=== PATIENT | male | born 1965 | race Caucasian/White ===

== ENCOUNTER 2023-03-31 11:22 | Observation (INO) | payer BC ==
[2023-03-31] MEDS ORDERED: Cardizem IV 50 MG/10 ML IV ONE ×2 (11:59→12:09)
--- NOTE | 2023-03-31 12:02 | ERPHSYRPT ---
- History of Present Illness Time Seen by Provider: 03/31/23 11:35 Source: patient Exam Limitations: no limitations Patient Subjective Stated Complaint: short of breath Triage Nursing Assessment: Pt brought to the ER by self, tachycardic, afib with RVR, denies pain, states that he did wake up with pain between his shoulder blades, dry unproductive cough, has been short of breath for a couple of weeks and has been taking primatene mist, states that he felt more short of breath this morning, pulses bounding, skin n/w/d, doesn't appear to be in any distress Physician History: Patient is a 57-year-old male with a history of A-fib with RVR presents to our ED for evaluation of shortness of breath and pain to his shoulders. Patient believes that he has A-fib with RVR as he had same symptoms during his last episode of A-fib with RVR. Patient followed up with his primary care doctor this morning. Primary care doctor sent patient to our ED for further evaluation and treatment. His primary care doctor also requested a CTA chest to rule out PE which has been ordered. Patient otherwise feels well. No nausea vomiting or diaphoresis. No active chest pain at this time. Vague chest pressure. Patient voices no other complaints or concerns at this time. Portions of this note were created with voice recognition technology. There may be grammatical, spelling, punctuation or sound alike errors Timing/Duration: today Severity: moderate Modifying Factors: Improves With: nothing Associated Symptoms: denies symptoms Allergies/Adverse Reactions: No Known Drug Allergies Allergy (Verified 03/31/23 11:45) Home Medications: Tadalafil [Cialis] 20 mg PO UD 03/31/23 [History] Hx Influenza Vaccination/Date Given: No Hx Pneumococcal Vaccination/Date Given: No Travel Risk - International Travel Have you traveled outside of the country in past 3 weeks: No - Coronavirus Screening Are you exhibiting any of the following symptoms?: No Close contact with a COVID-19 positive Pt in past 14-21 Days: No - Vaccine Status Have you recieved a Covid-19 vaccination: Yes 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 - Vaccination Dates Date of 2cond Vaccination (if applicable): 2020 - Review of Systems Constitutional: No Symptoms, No Fever, No Chills Eyes: No Symptoms Ears, Nose, & Throat: No Symptoms Respiratory: No Symptoms, No Cough, No Dyspnea Cardiac: No Symptoms, No Chest Pain, No Edema, No Syncope Abdominal/Gastrointestinal: No Symptoms, No Abdominal Pain, No Nausea, No Vomiting, No Diarrhea Genitourinary Symptoms: No Symptoms, No Dysuria Musculoskeletal: No Symptoms, No Back Pain, No Neck Pain Skin: No Symptoms, No Rash Neurological: No Symptoms, No Dizziness, No Focal Weakness, No Sensory Changes Psychological: No Symptoms Endocrine: No Symptoms Hematologic/Lymphatic: No Symptoms Immunological/Allergic: No Symptoms All Other Systems: Reviewed and Negative - Past Medical History Pertinent Past Medical History: Yes Cardiac History: Arrhythmia, High Cholesterol, Hypertension GI Medical History: Hemorrhoids - Past Surgical History Past Surgical History: No - Social History Smoking Status: Never smoker Exposure to second hand smoke: Yes Drug Use: none Patient Lives Alone: No - Nursing Vital Signs Nursing Vital Signs: Initial Vital Signs Temperature 97.5 F 03/31/23 11:29 Pulse Rate 165 H 03/31/23 11:29 Respiratory Rate 25 H 03/31/23 11:29 Blood Pressure 137/99 03/31/23 11:29 O2 Sat by Pulse Oximetry 94 L 03/31/23 11:29 Pain Scale Pain Intensity 0 - Physical Exam General Appearance: no apparent distress, alert Eye Exam: PERRL/EOMI, eyes nml inspection Ears, Nose, Throat Exam: normal ENT inspection, TMs normal, pharynx normal, moist mucous membranes Neck Exam: normal inspection, non-tender, supple, full range of motion Respiratory Exam: normal breath sounds, lungs clear, airway intact, No respiratory distress Cardiovascular Exam: regular rate/rhythm, normal heart sounds, normal peripheral pulses Gastrointestinal/Abdomen Exam: soft, normal bowel sounds, No tenderness, No mass Back Exam: normal inspection, normal range of motion, No CVA tenderness, No vertebral tenderness Extremity Exam: normal inspection, normal range of motion, pelvis stable Neurologic Exam: alert, oriented x 3, cooperative, normal mood/affect, nml cerebellar function, nml station & gait, sensation nml, No motor deficits Skin Exam: normal color, warm, dry, No rash Lymphatic Exam: No adenopathy SpO2: 94 - Course Nursing assessment & vital signs reviewed: Yes EKG Interpreted by Me: RATE ([id number]), A-fib, NORMAL AXIS, NORMAL INTERVALS Ordered Tests: Active Orders 24 hr Category Date Time Status CHEST WITH CONTRAST [CT] Stat Exams 03/31/23 12:01 Ordered CBC W DIFF Stat Lab 03/31/23 12:10 Completed CMP Stat Lab 03/31/23 12:10 Completed NT PRO BNPII Stat Lab 03/31/23 12:10 Completed TROPONIN Q4H Lab 03/31/23 12:10 Completed TROPONIN Q4H Lab 03/31/23 16:15 Ordered TROPONIN Q4H Lab 03/31/23 20:15 Ordered Urine Triage Profile Stat Lab 03/31/23 12:01 Ordered Transfer Order Routine Transfer 03/31/23 Ordered Medication Summary Generic Name Dose Route Start Last Admin Trade Name Freq PRN Reason Stop Dose Admin Diltiazem HCl 100 mls @ 10 mls/hr 03/31/23 12:40 Cardizem Drip 100 Mg/100 Ml D5w IV 04/30/23 12:39 .Q10H PRN HEART RATE/ A-FIB Protocol 10 MG/HR Discontinued Medications Generic Name Dose Route Start Last Admin Trade Name Freq PRN Reason Stop Dose Admin Diltiazem HCl 15 mg 03/31/23 11:59 03/31/23 12:10 Diltiazem Hcl Iv 5 Mg/Ml Vial IV 03/31/23 12:00 15 mg STAT ONE Administration Diltiazem HCl Confirm 03/31/23 12:09 Diltiazem Hcl Iv 5 Mg/Ml Vial Administered 03/31/23 12:10 Dose 50 mg IV .STK-MED ONE Enoxaparin Sodium 100 mg 03/31/23 12:12 Enoxaparin Sodium 120 Mg/0.8 Ml Syringe SQ 03/31/23 12:13 STAT STA Lab/Rad Data: Laboratory Result Diagrams 03/31/23 12:10 03/31/23 12:10 Laboratory Results 03/31/23 03/31/23 03/31/23 Range/Units 12:10 12:10 12:10 WBC 10.4 (4.0-10.5) x10^3/uL RBC 5.36 (4.1-5.6) x10^6/uL Hgb 17.0 (12.5-18.0) g/dL Hct 51.8 H (42-50) % MCV 96.6 (78-100) fL MCH 31.7 (26-32) pg MCHC 32.8 (32-36) g/dL RDW 13.4 (11.5-14.0) % Plt Count 177 (150-450) x10^3/uL MPV 10.6 (7.5-11.0) fL Gran % 71.2 H (36.0-66.0) % Immature Gran % (Auto) 0.4 (0.00-0.4) % Nucleat RBC Rel Count 0.0 (0.00-0.1) % Eos # (Auto) 0.07 (0-0.5) x10^3/uL Immature Gran # (Auto) 0.04 H (0.00-0.03) x10^3u/L Absolute Lymphs (auto) 1.52 (1.0-4.6) x10^3/uL Absolute Monos (auto) 1.31 H (0.0-1.3) x10^3/uL Absolute Nucleated RBC 0.00 (0.00-0.01) x10^3u/L Lymphocytes % 14.6 L (24.0-44.0) % Monocytes % 12.6 H (0.0-12.0) % Eosinophils % 0.7 (0.00-5.0) % Basophils % 0.5 (0.0-0.4) % Absolute Granulocytes 7.44 H (1.4-6.9) x10^3/uL Basophils # 0.05 (0-0.4) x10^3/uL Sodium 138 (137-145) mmol/L Potassium 4.4 (3.5-5.1) mmol/L Chloride 102 (98-107) mmol/L Carbon Dioxide 27 (22-30) mmol/L Anion Gap 14.2 (5-15) MEQ/L BUN 14 (9-20) mg/dL Creatinine 1.09 (0.66-1.25) mg/dL Estimated GFR > 60.0 ML/MIN Glucose 97 (74-106) mg/dL Calcium 9.3 (8.4-10.2) mg/dL Total Bilirubin 1.30 (0.2-1.3) mg/dL AST 44 (17-59) U/L ALT 45 (0-50) U/L Alkaline Phosphatase 70 (38-126) U/L Troponin I < 0.012 (0.000-0.034) ng/mL NT-Pro-B Natriuret Pep 3130 (<300) pg/mL Serum Total Protein 7.5 (6.3-8.2) g/dL Albumin 4.6 (3.5-5.0) g/dL - Progress Progress: improved Progress Note: Patient is a 57-year-old male presents to our ED as a referral from his primary care doctor for evaluation of tachycardia. Patient's primary care doctor request CTA chest with contrast. Upon arrival to our ED patient observed to be in A-fib with RVR. Cardizem initiated. Weight-based Lovenox administered. Case discussed with Dr. diaz at 12:40 PM for admission. Portions of this note were created with voice recognition technology. There may be grammatical, spelling, punctuation or sound alike errors Complexity of problems addressed is moderate acute complicated Critical care time is 1 hour. Immediate intervention required to prevent further deterioration. Patient received Cardizem 2 decreased the ventricular response to the atrial fibrillation. Complex of data reviewed and analyzed is extensive. Test ordered test reviewed and analyzed. Clinical correlation made between the imaging and laboratory findings versus the history and physical examination. Management discussed with separate admission at 12:40 PM. Risk complication and or risk of morbidity/mortality of patient management is high. Patient will require hospitalization in the ICU for further evaluation and treatment. Portions of this note were created with voice recognition technology. There may be grammatical, spelling, punctuation or sound alike errors Time spent to admit patient approximately 20 minutes. Plan of care established for shared decision making. Patient voices no other complaints or concerns at this time. He agrees to admission [facility] for further evaluation and treatment. Portions of this note were created with voice recognition technology. There may be grammatical, spelling, punctuation or sound alike errors 03/31/23 13:05 Discussed with : Dawood Will see patient in: hospital (observation) Counseled pt/family regarding: lab results, diagnosis, rad results - Departure Departure Disposition: Observation Clinical Impression: Atrial fibrillation with RVR Condition: Stable Critical Care Time: No Referrals: WANDER CHAVARRIA MD [Primary Care Provider] - Follow up/PCP as directed
[2023-03-31] MEDS ORDERED: ENOXAPARIN SODIUM SQ STA (12:12)
[2023-03-31 12:19] LABS: Absolute Neutrophil Ct (ANC) 7.44 x10^3/uL (1.4-6.9); BASOPHIL % 0.5 % (0.0-0.4); Basophil (Absolute #) 0.05 x10^3/uL (0-0.4); Eosinophil % 0.7 % (0.00-5.0); Eosinophil (Absolute #) 0.07 x10^3/uL (0-0.5); Hematocrit 51.8 % (42-50); IMMATURE GRAN # 0.04 x10^3u/L (0.00-0.03); IMMATURE GRAN % 0.4 % (0.00-0.4); Lymphocyte (Absolute #) 1.52 x10^3/uL (1.0-4.6); Lymphocytes % 14.6 % (24.0-44.0); Mean Cell Volume 96.6 fL (78-100); Mean Corpuscular Hemoglobin 31.7 pg (26-32); Mean Corpuscular Hgb Concent. 32.8 g/dL (32-36); Mean Platelet Volume 10.6 fL (7.5-11.0); Monocyte (Absolute #) 1.31 x10^3/uL (0.0-1.3); Monocytes % 12.6 % (0.0-12.0); Neutrophil % 71.2 % (36.0-66.0); Platelet Count 177 x10^3/uL (150-450); Red Blood Count 5.36 x10^6/uL (4.1-5.6); Red Cell Distribution Width 13.4 % (11.5-14.0); White Blood Count 10.4 x10^3/uL (4.0-10.5)
[2023-03-31] MEDS ORDERED: CARDIZEM DRIP 100 MG/100 ML D5W 100 ML IV PRN (12:40)
[2023-03-31 12:44] LABS: ALBUMIN 4.6 g/dL (3.5-5.0); ALKALINE PHOSPHATASE 70 U/L (38-126); ANION GAP 14.2 MEQ/L (5-15); BLOOD UREA NITROGEN 14 mg/dL (9-20); CHLORIDE 102 mmol/L (98-107); Calcium 9.3 mg/dL (8.4-10.2); Carbon Dioxide 27 mmol/L (22-30); Creatinine 1 1.09 mg/dL (0.66-1.25); EST GLOMERULAR FILTRATION RATE > 60.0 ML/MIN; Glucose 97 mg/dL (74-106); NT PRO BNPII 3130 pg/mL (<300); Potassium 4.4 mmol/L (3.5-5.1); SGOT/AST 44 U/L (17-59); SGPT/ALT 45 U/L (0-50); SODIUM 138 mmol/L (137-145); Total Protein 7.5 g/dL (6.3-8.2)
[2023-03-31] MEDS ORDERED: ENOXAPARIN SODIUM SQ ONE (13:21)
--- NOTE | 2023-03-31 13:45 | XRAY ---
Indication: Short of breath. Pulmonary embolus. Multiple contiguous axial images obtained through the chest using 80 cc Isovue 370 contrast and PE protocol. Comparison: None Good opacification of the pulmonary arteries to include the lobar and segmental branches. No bony embolus. Heart not enlarged. Aorta is normal in course and caliber. No pathologic mediastinal/hilar lymphadenopathy. Lungs demonstrate mild bibasilar subsegmental atelectasis/scarring and tiny right effusion. No suspicious pulmonary mass/nodule, infiltrate, effusion, or pneumothorax. Bony thorax intact with minimal degenerative changes throughout the spine. Limited upper abdomen demonstrates fatty liver. Visualized gallbladder demonstrates mild pericholecystic stranding without obvious gallstones, possibly acalculous cholecystitis. Impression: 1. Negative pulmonary embolus. Tiny nonspecific right effusion. 2. Partially visualized pericholecystic stranding. Rule out acalculous cholecystitis. Sonogram may yield further information if clinically warranted. 3. Fatty liver.
--- NOTE | 2023-03-31 14:18 | PCM.HP ---
History of Present Illness - Chief Complaint Chief Complaint: A-fib with RVR Date: 03/31/23 History of Present Illness: is a 57 year old male with a pmhx of HTN and HLD presented to the ED on 03/31/23 with complaints of shortness of breath and pain in between his shoulder blades. Patient reports onset was approximately two days ago, he woke up feeling like "someone was covering my mouth" and had to spend the night in a chair sitting up while sleeping. 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 No associated N/V, fever, CP, H/A, or diaphoresis. Patient does state that he recently took cialis as well as primatene mist. In ER patient was tachycardic with HR of 165, afebrile, and normotensive. EKG showing AFIB, and old infarct. CTA - Negative pulmonary embolus. Tiny nonspecific right effusion. Partially visualized pericholecystic stranding with recommendations to rule out acalculous cholecystitis. Fatty liver. Patient started on lovenox as well as cardizem drip. PCP: Enrique Davenport - Review of Systems Constitutional: No Symptoms Eyes: No Symptoms Ears, Nose, & Throat: No Symptoms Respiratory: Cough, Short Of Breath Cardiac: Palpitations Abdominal/Gastrointestinal: No Symptoms Genitourinary Symptoms: No Symptoms Musculoskeletal: Back Pain Skin: No Symptoms Neurological: No Symptoms Psychological: No Symptoms Medications & Allergies Home Medications: Home Medication List EPINEPHrine [Primatene Mist] 2 puffs IH UD PRN 03/31/23 [History Confirmed 03/31/23] Tadalafil [Cialis] 20 mg PO UD 03/31/23 [History Confirmed 03/31/23] Allergies/Adverse Reactions: Allergies Allergy/AdvReac Type Severity Reaction Status Date / Time No Known Drug Allergies Allergy Verified 03/31/23 11:45 - Past Medical History Past Medical History: Yes Cardiac History: Arrhythmia, High Cholesterol, Hypertension GI Medical History: Hemorrhoids - Past Surgical History Past Surgical History: No - Social History Smoking Status: Never smoker Exposure to second hand smoke: Yes Alcohol: Daily Drug Use: none - Physical Exam Vital Signs: Vital Signs - 24 hr Temp Pulse Resp BP BP Pulse Ox 03/31/23 13:57 129 H 95 03/31/23 13:35 134 H 23 99/82 95 03/31/23 13:09 94 L 03/31/23 12:30 99/82 03/31/23 12:26 140 H 19 108/83 94 L 03/31/23 12:01 136 H 17 106/87 94 L 03/31/23 11:29 97.5 F 165 H 5 L 137/99 94 L General Appearance: no apparent distress Neurologic Exam: alert, oriented x 3, cooperative Eye Exam: PERRL/EOMI Neck Exam: normal inspection Respiratory Exam: normal breath sounds, lungs clear Cardiovascular Exam: irregular Gastrointestinal/Abdomen Exam: soft, normal bowel sounds Rectal Exam: deferred Back Exam: normal inspection Extremity Exam: normal inspection Skin Exam: normal color Results - Labs Lab/Micro Results: Lab Results-Last 24 Hours 03/31/23 03/31/23 03/31/23 Range/Units 12:10 12:10 12:10 WBC 10.4 (4.0-10.5) x10^3/uL RBC 5.36 (4.1-5.6) x10^6/uL Hgb 17.0 (12.5-18.0) g/dL Hct 51.8 H (42-50) % MCV 96.6 (78-100) fL MCH 31.7 (26-32) pg MCHC 32.8 (32-36) g/dL RDW 13.4 (11.5-14.0) % Plt Count 177 (150-450) x10^3/uL MPV 10.6 (7.5-11.0) fL Gran % 71.2 H (36.0-66.0) % Immature Gran % (Auto) 0.4 (0.00-0.4) % Nucleat RBC Rel Count 0.0 (0.00-0.1) % Eos # (Auto) 0.07 (0-0.5) x10^3/uL Immature Gran # (Auto) 0.04 H (0.00-0.03) x10^3u/L Absolute Lymphs (auto) 1.52 (1.0-4.6) x10^3/uL Absolute Monos (auto) 1.31 H (0.0-1.3) x10^3/uL Absolute Nucleated RBC 0.00 (0.00-0.01) x10^3u/L Lymphocytes % 14.6 L (24.0-44.0) % Monocytes % 12.6 H (0.0-12.0) % Eosinophils % 0.7 (0.00-5.0) % Basophils % 0.5 (0.0-0.4) % Absolute Granulocytes 7.44 H (1.4-6.9) x10^3/uL Basophils # 0.05 (0-0.4) x10^3/uL Sodium 138 (137-145) mmol/L Potassium 4.4 (3.5-5.1) mmol/L Chloride 102 (98-107) mmol/L Carbon Dioxide 27 (22-30) mmol/L Anion Gap 14.2 (5-15) MEQ/L BUN 14 (9-20) mg/dL Creatinine 1.09 (0.66-1.25) mg/dL Estimated GFR > 60.0 ML/MIN Glucose 97 (74-106) mg/dL Calcium 9.3 (8.4-10.2) mg/dL Total Bilirubin 1.30 (0.2-1.3) mg/dL AST 44 (17-59) U/L ALT 45 (0-50) U/L Alkaline Phosphatase 70 (38-126) U/L Troponin I < 0.012 (0.000-0.034) ng/mL NT-Pro-B Natriuret Pep 3130 (<300) pg/mL Serum Total Protein 7.5 (6.3-8.2) g/dL Albumin 4.6 (3.5-5.0) g/dL - Radiology Impressions Radiology Exams & Impressions: Radiology Procedures Category Date Time Status CHEST WITH CONTRAST [CT] Stat Exams 03/31/23 12:01 Completed Assessment/Plan (1) Atrial fibrillation with RVR Current Visit: Yes Status: Acute Assessment & Plan: Atrial Fibrillation- new onset -Monitor on Telemetry -Cardizem drip at 5mg/hr, titrate, consider metoprolol once rate controlled -rate control to target goal HR <85 bpm at rest if symptomatic, goal HR <110 bpm if asymptomatic -[id number]: 1 -Not currently on anticoagulation, lovenox for now -PT/INR supratherapeutic pending -optimize electrolytes for goal of K at 4 and magnesium at 2 -BMP, TSH, MG -ECHO stat Code(s): I48.91 - UNSPECIFIED ATRIAL FIBRILLATION (2) Hypertension Current Visit: Yes Status: Acute Assessment & Plan: -stable, will continue to monitor Code(s): I10 - ESSENTIAL (PRIMARY) HYPERTENSION (3) HLD (hyperlipidemia) Current Visit: Yes Status: Acute Assessment & Plan: -noted, does not take home meds, will check lipid panel Code(s): E78.5 - HYPERLIPIDEMIA, UNSPECIFIED (4) Abnormal CT of the chest Current Visit: Yes Status: Acute Assessment & Plan: -CTA showing Partially visualized pericholecystic stranding with recommendations to rule out acalculous cholecystitis. Will order abdominal US. VTE: lovenox Dispo: 1-2 days Code(s): R93.89 - ABNORMAL FINDINGS ON DX IMAGING OF OTH BODY STRUCTURES
[2023-03-31] MEDS ORDERED: Zofran 4 MG/2 ML VIAL IV PRN (14:59)
[2023-03-31] MEDS ORDERED: TYLENOL 325 MG PO PRN (14:59)
[2023-03-31] MEDS ORDERED: DUONEB 0.5-3 MG/3 ml Neb IH PRN (14:59)
[2023-03-31 15:14] LABS: Amphetamine,Urine NEGATIVE (NEGATIVE); Barbiturate,Urine NEGATIVE (NEGATIVE); Benzodiazepine,Urine NEGATIVE (NEGATIVE); Cocaine,Urine NEGATIVE (NEGATIVE); Methadone,Urine NEGATIVE (NEGATIVE); Opiate,Urine NEGATIVE (NEGATIVE); PCP,Urine NEGATIVE (NEGATIVE); THC,Urine POSITIVE (NEGATIVE)
[2023-03-31 15:22] LABS: INR 1.07 (0.8-3.0); PROTIME 11.6 SECONDS (9.4-12.5)
[2023-03-31] MEDS: Lopressor 50 MG PO SCH ×2 (15:23→21:10)
[2023-03-31 15:30] LABS: Appearance Clear (Clear); Bilirubin Negative (Negative); Blood Negative (Negative); Glucose, Urine Negative (Negative); Ketones Trace (Negative); Leukocyte Esterase Negative (Negative); Nitrite Negative (Negative); Ph 6.5 (4.6-8.0); Protein,Urine Dip Negative (Negative); Urobilinogen 0.2 mg/dL (0.2)
[2023-03-31 15:35] LABS: Bacteria None Seen /HPF (None Seen); Epithelial Cells None Seen /HPF (None Seen); Hyaline Casts NONE SEEN /LPF (0-2); RBC 0-2 /HPF (0-5); WBC 0-2 /HPF (0-5)
[2023-03-31 15:36] LABS: ADD URINE CULTURE? NO (NO)
[2023-03-31 15:55] LABS: MAGNESIUM 2.2 mg/dL (1.6-2.3); TSH, 3RD Generation 2.76 mIU/L (0.47-4.68)
[2023-03-31] MEDS: CARDIZEM DRIP 100 MG/100 ML D5W 100 ML IV PRN (18:07)
[2023-03-31] MEDS ORDERED: ENOXAPARIN SODIUM SQ SCH (22:00)
[2023-04-01 04:55] LABS: Absolute Neutrophil Ct (ANC) 5.55 x10^3/uL (1.4-6.9); BASOPHIL % 0.4 % (0.0-0.4); Basophil (Absolute #) 0.03 x10^3/uL (0-0.4); Eosinophil % 1.3 % (0.00-5.0); Eosinophil (Absolute #) 0.11 x10^3/uL (0-0.5); Hematocrit 47.9 % (42-50); Hemoglobin 15.8 g/dL (12.5-18.0); IMMATURE GRAN # 0.03 x10^3u/L (0.00-0.03); IMMATURE GRAN % 0.4 % (0.00-0.4); Lymphocyte (Absolute #) 1.59 x10^3/uL (1.0-4.6); Lymphocytes % 19.1 % (24.0-44.0); Mean Cell Volume 96.6 fL (78-100); Mean Corpuscular Hemoglobin 31.9 pg (26-32); Mean Platelet Volume 10.6 fL (7.5-11.0); Monocyte (Absolute #) 1.01 x10^3/uL (0.0-1.3); Monocytes % 12.1 % (0.0-12.0); Neutrophil % 66.7 % (36.0-66.0); Platelet Count 154 x10^3/uL (150-450); Red Blood Count 4.96 x10^6/uL (4.1-5.6); Red Cell Distribution Width 13.7 % (11.5-14.0); White Blood Count 8.3 x10^3/uL (4.0-10.5)
[2023-04-01 05:08] LABS: ALKALINE PHOSPHATASE 50 U/L (38-126); ANION GAP 10.9 MEQ/L (5-15); BLOOD UREA NITROGEN 18 mg/dL (9-20); CHLORIDE 104 mmol/L (98-107); Calcium 8.7 mg/dL (8.4-10.2); Carbon Dioxide 24 mmol/L (22-30); Creatinine 1 0.99 mg/dL (0.66-1.25); EST GLOMERULAR FILTRATION RATE > 60.0 ML/MIN; Glucose 86 mg/dL (74-106); SGOT/AST 34 U/L (17-59); SGPT/ALT 37 U/L (0-50); SODIUM 135 mmol/L (137-145); Total Protein 6.6 g/dL (6.3-8.2)
[2023-04-01 05:25] LABS: Risk Ratio 4.1
[2023-04-01] MEDS: CARDIZEM DRIP 100 MG/100 ML D5W 100 ML IV PRN ×2 (05:53→10:40)
[2023-04-01] MEDS: Lopressor 50 MG PO SCH ×2 (07:20→20:40)
[2023-04-01] MEDS ORDERED: ENOXAPARIN SODIUM SQ SCH (10:00)
--- NOTE | 2023-04-01 11:25 | XRAY ---
Indication: Right upper quadrant pain. Abnormal gallbladder on recent CT chest. Two-dimensional limited right upper quadrant abdominal sonogram performed. Comparison: None Pancreas not well-seen due to overlying bowel gas. Visualized liver homogeneous in echogenicity. Gallbladder normally distended with marked gallbladder wall thickening up to 1.2 cm. No gallstones or pericholecystic fluid. Common bile duct measures 5 mm. No intrahepatic biliary distention. Right kidney measures 12 cm in length and sonographically unremarkable. Impression: 1. Nonvisualization pancreas. 2. Abnormal gallbladder wall thickening without gallstones. Rule out acalculous cholecystitis.
--- NOTE | 2023-04-01 12:56 | PCM.NOTE ---
Date and Time: 04/01/23 1250 Subjective Assessment: is a 57 year old male with a pmhx of HTN and HLD presented to the ED on 03/31/23 with complaints of shortness of breath and pain in between his shoulder blades admitted for AFIB RVR, acalculous cholecystitis, currently on cardizem drip/metoprolol as well as Unasyn. HR still not controlled, increased metoprolol, cards consult pending. ECHO pending final read. US abdomen showing G wall thickening. General surgery consulted. May need cardiac clearance/stress test prior to surgical intervention. Patient endorses overall improvement of symptoms. States he does still have a [employer] cough. - Review of Systems Constitutional: No Symptoms Eyes: No Symptoms Ears, Nose, & Throat: No Symptoms Respiratory: Cough Cardiac: Palpitations Abdominal/Gastrointestinal: No Symptoms Genitourinary Symptoms: No Symptoms Musculoskeletal: No Symptoms Skin: No Symptoms Neurological: No Symptoms Psychological: No Symptoms Objective Exam General Appearance: no apparent distress Neurologic Exam: alert, oriented x 3, cooperative Skin Exam: normal color Eye Exam: PERRL Respiratory Exam: normal breath sounds, lungs clear Cardiovascular Exam: tachycardia, other (irregular rhythm) Gastrointestinal/Abdomen Exam: soft, normal bowel sounds Extremity Exam: normal inspection Back Exam: point tenderness (between shoulders) OBJECTIVE DATA Vital Signs: Vital Signs - 24 hr Temp Pulse Resp BP BP Pulse Ox 04/01/23 12:00 93 H 24 115/78 04/01/23 11:00 112 H 24 106/81 04/01/23 10:40 103 H 20 106/81 04/01/23 10:00 107 H 24 04/01/23 09:24 99 H 22 120/93 04/01/23 09:00 110 H 18 120/93 04/01/23 08:04 96 H 22 116/94 04/01/23 07:27 97.7 F 129 H 20 128/91 94 L 04/01/23 07:15 129 H 23 128/91 04/01/23 07:00 134 H 18 128/91 96 04/01/23 06:50 111 H 16 96 04/01/23 05:53 145 H 143/87 04/01/23 04:31 85 04/01/23 04:00 98.5 F 112 H 19 114/86 04/01/23 00:12 97.8 F 90 21 113/81 97 04/01/23 00:01 90 03/31/23 22:00 82 15 92/72 03/31/23 21:09 74 20 89/72 03/31/23 21:07 89/72 03/31/23 21:00 81 22 89/72 96 03/31/23 20:07 75 22 97/79 03/31/23 19:42 97.9 F 71 20 107/74 95 03/31/23 19:09 70 20 95 03/31/23 19:07 75 23 107/74 03/31/23 19:00 97.9 F 75 23 107/74 96 03/31/23 18:07 76 23 102/79 03/31/23 18:05 74 23 102/79 03/31/23 18:00 78 22 102/79 03/31/23 17:03 96 H 26 H 107/79 03/31/23 17:00 96 H 26 H 107/79 03/31/23 16:00 128 H 24 114/75 94 L 03/31/23 15:39 121 H 20 94 L 03/31/23 15:00 150 H 21 129/97 129/97 03/31/23 14:35 117 H 03/31/23 14:13 140 H 23 139/89 03/31/23 14:08 136 H 18 139/89 94 L 03/31/23 13:57 129 H 95 03/31/23 13:35 134 H 23 99/82 95 03/31/23 13:09 94 L Pain Assessment - Last Documented Pain Intensity 0 Intake and Output: Intake & Output 03/30/23 03/31/23 04/01/23 04/02/23 11:59 11:59 11:59 11:59 Intake Total 346 Output Total 1760 150 Balance -1414 -150 Weight 116.12 kg 116.2 kg Lab Results: Lab Results-Last 24 Hours 03/31/23 03/31/23 03/31/23 Range/Units 12:00 12:00 12:10 WBC (4.0-10.5) x10^3/uL RBC (4.1-5.6) x10^6/uL Hgb (12.5-18.0) g/dL Hct (42-50) % MCV (78-100) fL MCH (26-32) pg MCHC (32-36) g/dL RDW (11.5-14.0) % Plt Count (150-450) x10^3/uL MPV (7.5-11.0) fL Gran % (36.0-66.0) % Immature Gran % (Auto) (0.00-0.4) % Nucleat RBC Rel Count (0.00-0.1) % Eos # (Auto) (0-0.5) x10^3/uL Immature Gran # (Auto) (0.00-0.03) x10^3u/L Absolute Lymphs (auto) (1.0-4.6) x10^3/uL Absolute Monos (auto) (0.0-1.3) x10^3/uL Absolute Nucleated RBC (0.00-0.01) x10^3u/L Lymphocytes % (24.0-44.0) % Monocytes % (0.0-12.0) % Eosinophils % (0.00-5.0) % Basophils % (0.0-0.4) % Absolute Granulocytes (1.4-6.9) x10^3/uL Basophils # (0-0.4) x10^3/uL PT 11.6 (9.4-12.5) SECONDS INR 1.07 (0.8-3.0) Sodium (137-145) mmol/L Potassium (3.5-5.1) mmol/L Chloride (98-107) mmol/L Carbon Dioxide (22-30) mmol/L Anion Gap (5-15) MEQ/L BUN (9-20) mg/dL Creatinine (0.66-1.25) mg/dL Estimated GFR ML/MIN Glucose (74-106) mg/dL Calcium (8.4-10.2) mg/dL Magnesium 2.2 (1.6-2.3) mg/dL Total Bilirubin (0.2-1.3) mg/dL AST (17-59) U/L ALT (0-50) U/L Alkaline Phosphatase (38-126) U/L Troponin I < 0.012 (0.000-0.034) ng/mL Serum Total Protein (6.3-8.2) g/dL Albumin (3.5-5.0) g/dL Triglycerides (30-150) mg/dL Cholesterol (50-200) mg/dL LDL Cholesterol (30-100) mg/dL HDL Cholesterol (40-60) mg/dL Heart Disease Risk Ratio TSH 3rd Generation 2.760 (0.47-4.68) mIU/L Urine Color (Yellow) Urine Appearance (Clear) Urine pH (4.6-8.0) Ur Specific [place] (1.005-1.030) Urine Protein (Negative) Urine Glucose (UA) (Negative) mg/dL Urine Ketones (Negative) Urine Blood (Negative) Urine Nitrite (Negative) Urine Bilirubin (Negative) Urine Urobilinogen (0.2) mg/dL Ur Leukocyte Esterase (Negative) U Hyaline Cast (Auto) (0-2) /LPF Urine Microscopic RBC (0-5) /HPF Urine Microscopic WBC (0-5) /HPF Ur Epithelial Cells (None Seen) /HPF Urine Bacteria (None Seen) /HPF Urine Culture Reflexed (NO) Urine Opiates Level (NEGATIVE) Ur Methadone (NEGATIVE) Urine Barbiturates (NEGATIVE) Ur Phencyclidine (PCP) (NEGATIVE) Urine Amphetamine (NEGATIVE) U Benzodiazepine Level (NEGATIVE) Urine Cocaine (NEGATIVE) Urine Marijuana (THC) (NEGATIVE) 03/31/23 03/31/23 03/31/23 Range/Units 13:35 15:19 16:10 WBC (4.0-10.5) x10^3/uL RBC (4.1-5.6) x10^6/uL Hgb (12.5-18.0) g/dL Hct (42-50) % MCV (78-100) fL MCH (26-32) pg MCHC (32-36) g/dL RDW (11.5-14.0) % Plt Count (150-450) x10^3/uL MPV (7.5-11.0) fL Gran % (36.0-66.0) % Immature Gran % (Auto) (0.00-0.4) % Nucleat RBC Rel Count (0.00-0.1) % Eos # (Auto) (0-0.5) x10^3/uL Immature Gran # (Auto) (0.00-0.03) x10^3u/L Absolute Lymphs (auto) (1.0-4.6) x10^3/uL Absolute Monos (auto) (0.0-1.3) x10^3/uL Absolute Nucleated RBC (0.00-0.01) x10^3u/L Lymphocytes % (24.0-44.0) % Monocytes % (0.0-12.0) % Eosinophils % (0.00-5.0) % Basophils % (0.0-0.4) % Absolute Granulocytes (1.4-6.9) x10^3/uL Basophils # (0-0.4) x10^3/uL PT (9.4-12.5) SECONDS INR (0.8-3.0) Sodium (137-145) mmol/L Potassium (3.5-5.1) mmol/L Chloride (98-107) mmol/L Carbon Dioxide (22-30) mmol/L Anion Gap (5-15) MEQ/L BUN (9-20) mg/dL Creatinine (0.66-1.25) mg/dL Estimated GFR ML/MIN Glucose (74-106) mg/dL Calcium (8.4-10.2) mg/dL Magnesium (1.6-2.3) mg/dL Total Bilirubin (0.2-1.3) mg/dL AST (17-59) U/L ALT (0-50) U/L Alkaline Phosphatase (38-126) U/L Troponin I < 0.012 (0.000-0.034) ng/mL Serum Total Protein (6.3-8.2) g/dL Albumin (3.5-5.0) g/dL Triglycerides (30-150) mg/dL Cholesterol (50-200) mg/dL LDL Cholesterol (30-100) mg/dL HDL Cholesterol (40-60) mg/dL Heart Disease Risk Ratio TSH 3rd Generation (0.47-4.68) mIU/L Urine Color Yellow (Yellow) Urine Appearance Clear (Clear) Urine pH 6.5 (4.6-8.0) Ur Specific [place] 1.020 (1.005-1.030) Urine Protein Negative (Negative) Urine Glucose (UA) Negative (Negative) mg/dL Urine Ketones Trace A (Negative) Urine Blood Negative (Negative) Urine Nitrite Negative (Negative) Urine Bilirubin Negative (Negative) Urine Urobilinogen 0.2 (0.2) mg/dL Ur Leukocyte Esterase Negative (Negative) U Hyaline Cast (Auto) NONE SEEN (0-2) /LPF Urine Microscopic RBC 0-2 (0-5) /HPF Urine Microscopic WBC 0-2 (0-5) /HPF Ur Epithelial Cells None Seen (None Seen) /HPF Urine Bacteria None Seen (None Seen) /HPF Urine Culture Reflexed NO (NO) Urine Opiates Level NEGATIVE (NEGATIVE) Ur Methadone NEGATIVE (NEGATIVE) Urine Barbiturates NEGATIVE (NEGATIVE) Ur Phencyclidine (PCP) NEGATIVE (NEGATIVE) Urine Amphetamine NEGATIVE (NEGATIVE) U Benzodiazepine Level NEGATIVE (NEGATIVE) Urine Cocaine NEGATIVE (NEGATIVE) Urine Marijuana (THC) POSITIVE (NEGATIVE) 03/31/23 04/01/23 04/01/23 Range/Units 20:35 04:48 04:48 WBC 8.3 (4.0-10.5) x10^3/uL RBC 4.96 (4.1-5.6) x10^6/uL Hgb 15.8 (12.5-18.0) g/dL Hct 47.9 (42-50) % MCV 96.6 (78-100) fL MCH 31.9 (26-32) pg MCHC 33.0 (32-36) g/dL RDW 13.7 (11.5-14.0) % Plt Count 154 (150-450) x10^3/uL MPV 10.6 (7.5-11.0) fL Gran % 66.7 H (36.0-66.0) % Immature Gran % (Auto) 0.4 (0.00-0.4) % Nucleat RBC Rel Count 0.0 (0.00-0.1) % Eos # (Auto) 0.11 (0-0.5) x10^3/uL Immature Gran # (Auto) 0.03 (0.00-0.03) x10^3u/L Absolute Lymphs (auto) 1.59 (1.0-4.6) x10^3/uL Absolute Monos (auto) 1.01 (0.0-1.3) x10^3/uL Absolute Nucleated RBC 0.00 (0.00-0.01) x10^3u/L Lymphocytes % 19.1 L (24.0-44.0) % Monocytes % 12.1 H (0.0-12.0) % Eosinophils % 1.3 (0.00-5.0) % Basophils % 0.4 (0.0-0.4) % Absolute Granulocytes 5.55 (1.4-6.9) x10^3/uL Basophils # 0.03 (0-0.4) x10^3/uL PT (9.4-12.5) SECONDS INR (0.8-3.0) Sodium (137-145) mmol/L Potassium (3.5-5.1) mmol/L Chloride (98-107) mmol/L Carbon Dioxide (22-30) mmol/L Anion Gap (5-15) MEQ/L BUN (9-20) mg/dL Creatinine (0.66-1.25) mg/dL Estimated GFR ML/MIN Glucose (74-106) mg/dL Calcium (8.4-10.2) mg/dL Magnesium (1.6-2.3) mg/dL Total Bilirubin (0.2-1.3) mg/dL AST (17-59) U/L ALT (0-50) U/L Alkaline Phosphatase (38-126) U/L Troponin I < 0.012 (0.000-0.034) ng/mL Serum Total Protein (6.3-8.2) g/dL Albumin (3.5-5.0) g/dL Triglycerides 73 (30-150) mg/dL Cholesterol 160 (50-200) mg/dL LDL Cholesterol 104 H (30-100) mg/dL HDL Cholesterol 39 L (40-60) mg/dL Heart Disease Risk Ratio 4.1 TSH 3rd Generation (0.47-4.68) mIU/L Urine Color (Yellow) Urine Appearance (Clear) Urine pH (4.6-8.0) Ur Specific [place] (1.005-1.030) Urine Protein (Negative) Urine Glucose (UA) (Negative) mg/dL Urine Ketones (Negative) Urine Blood (Negative) Urine Nitrite (Negative) Urine Bilirubin (Negative) Urine Urobilinogen (0.2) mg/dL Ur Leukocyte Esterase (Negative) U Hyaline Cast (Auto) (0-2) /LPF Urine Microscopic RBC (0-5) /HPF Urine Microscopic WBC (0-5) /HPF Ur Epithelial Cells (None Seen) /HPF Urine Bacteria (None Seen) /HPF Urine Culture Reflexed (NO) Urine Opiates Level (NEGATIVE) Ur Methadone (NEGATIVE) Urine Barbiturates (NEGATIVE) Ur Phencyclidine (PCP) (NEGATIVE) Urine Amphetamine (NEGATIVE) U Benzodiazepine Level (NEGATIVE) Urine Cocaine (NEGATIVE) Urine Marijuana (THC) (NEGATIVE) 04/01/23 04/01/23 Range/Units 04:48 05:20 WBC (4.0-10.5) x10^3/uL RBC (4.1-5.6) x10^6/uL Hgb (12.5-18.0) g/dL Hct (42-50) % MCV (78-100) fL MCH (26-32) pg MCHC (32-36) g/dL RDW (11.5-14.0) % Plt Count (150-450) x10^3/uL MPV (7.5-11.0) fL Gran % (36.0-66.0) % Immature Gran % (Auto) (0.00-0.4) % Nucleat RBC Rel Count (0.00-0.1) % Eos # (Auto) (0-0.5) x10^3/uL Immature Gran # (Auto) (0.00-0.03) x10^3u/L Absolute Lymphs (auto) (1.0-4.6) x10^3/uL Absolute Monos (auto) (0.0-1.3) x10^3/uL Absolute Nucleated RBC (0.00-0.01) x10^3u/L Lymphocytes % (24.0-44.0) % Monocytes % (0.0-12.0) % Eosinophils % (0.00-5.0) % Basophils % (0.0-0.4) % Absolute Granulocytes (1.4-6.9) x10^3/uL Basophils # (0-0.4) x10^3/uL PT (9.4-12.5) SECONDS INR (0.8-3.0) Sodium 135 L (137-145) mmol/L Potassium 4.0 (3.5-5.1) mmol/L Chloride 104 (98-107) mmol/L Carbon Dioxide 24 (22-30) mmol/L Anion Gap 10.9 (5-15) MEQ/L BUN 18 (9-20) mg/dL Creatinine 0.99 (0.66-1.25) mg/dL Estimated GFR > 60.0 ML/MIN Glucose 86 (74-106) mg/dL Calcium 8.7 (8.4-10.2) mg/dL Magnesium 2.0 (1.6-2.3) mg/dL Total Bilirubin 1.30 (0.2-1.3) mg/dL AST 34 (17-59) U/L ALT 37 (0-50) U/L Alkaline Phosphatase 50 (38-126) U/L Troponin I (0.000-0.034) ng/mL Serum Total Protein 6.6 (6.3-8.2) g/dL Albumin 4.0 (3.5-5.0) g/dL Triglycerides (30-150) mg/dL Cholesterol (50-200) mg/dL LDL Cholesterol (30-100) mg/dL HDL Cholesterol (40-60) mg/dL Heart Disease Risk Ratio TSH 3rd Generation (0.47-4.68) mIU/L Urine Color (Yellow) Urine Appearance (Clear) Urine pH (4.6-8.0) Ur Specific [place] (1.005-1.030) Urine Protein (Negative) Urine Glucose (UA) (Negative) mg/dL Urine Ketones (Negative) Urine Blood (Negative) Urine Nitrite (Negative) Urine Bilirubin (Negative) Urine Urobilinogen (0.2) mg/dL Ur Leukocyte Esterase (Negative) U Hyaline Cast (Auto) (0-2) /LPF Urine Microscopic RBC (0-5) /HPF Urine Microscopic WBC (0-5) /HPF Ur Epithelial Cells (None Seen) /HPF Urine Bacteria (None Seen) /HPF Urine Culture Reflexed (NO) Urine Opiates Level (NEGATIVE) Ur Methadone (NEGATIVE) Urine Barbiturates (NEGATIVE) Ur Phencyclidine (PCP) (NEGATIVE) Urine Amphetamine (NEGATIVE) U Benzodiazepine Level (NEGATIVE) Urine Cocaine (NEGATIVE) Urine Marijuana (THC) (NEGATIVE) Radiology Exams: Radiology Procedures Category Date Time Status ABDOMINAL-LIMITED [US] Stat Exams 04/01/23 15:14 Completed CHEST WITH CONTRAST [CT] Stat Exams 03/31/23 12:01 Completed ECHO W/2D AND DOPPLER [US] Stat Exams 04/01/23 14:49 Taken Assessment/Plan (1) Atrial fibrillation with RVR Current Visit: Yes Status: Acute Assessment & Plan: Atrial Fibrillation- new onset 03/31: -Monitor on Telemetry -Cardizem drip at 5mg/hr, titrate, consider metoprolol once rate controlled -rate control to target goal HR <85 bpm at rest if symptomatic, goal HR <110 bpm if asymptomatic -[id number]: 1 -Not currently on anticoagulation, lovenox for now -PT/INR supratherapeutic pending -optimize electrolytes for goal of K at 4 and magnesium at 2 -BMP, TSH, MG -ECHO stat 04/01: -ECHO pending -Cards consult pending -continue cardizem drip/ metoprolol increased to 75mg bid with 25mg q6h prn for HR >110 -TSH, MG, K all wnl -Continue anticoagulation with lovenox Code(s): I48.91 - UNSPECIFIED ATRIAL FIBRILLATION (2) Hypertension Current Visit: Yes Status: Acute Assessment & Plan: -stable, will continue to monitor Code(s): I10 - ESSENTIAL (PRIMARY) HYPERTENSION (3) HLD (hyperlipidemia) Current Visit: Yes Status: Acute Assessment & Plan: -noted, does not take home meds, will check lipid panel 04/01: -Lipid panel with LDL at 104 and HDL at 39, total cholesterol WNL Code(s): E78.5 - HYPERLIPIDEMIA, UNSPECIFIED (4) Abnormal CT of the chest Current Visit: Yes Status: Acute Assessment & Plan: -CTA showing Partially visualized pericholecystic stranding with recommendations to rule out acalculous cholecystitis. Will order abdominal US. 04/01: -abdominal US showing GB wall thickening, gen surg consulted, may need cardiac clearance if surgical intervention needed -Unasyn added -HiDA ordered Code(s): R93.89 - ABNORMAL FINDINGS ON DX IMAGING OF OTH BODY STRUCTURES
[2023-04-01] MEDS: Lopressor 25MG Tab PO PRN (13:58)
[2023-04-01] MEDS: Unasyn 3 GM Vial*** 3 G in Sodium Chloride 100ML MINI-BAG PLUS 100 ML IV SCH ×2 (14:17→18:24)
[2023-04-01] MEDS ORDERED: ELIQUIS 2.5 MG TABLET PO SCH (22:00)
[2023-04-02] MEDS: Unasyn 3 GM Vial*** 3 G in Sodium Chloride 100ML MINI-BAG PLUS 100 ML IV SCH ×5 (00:20→23:40)
[2023-04-02 04:40] LABS: Absolute Neutrophil Ct (ANC) 4.09 x10^3/uL (1.4-6.9); BASOPHIL % 0.6 % (0.0-0.4); Basophil (Absolute #) 0.04 x10^3/uL (0-0.4); Eosinophil % 1.9 % (0.00-5.0); Eosinophil (Absolute #) 0.12 x10^3/uL (0-0.5); Hematocrit 48.5 % (42-50); Hemoglobin 15.7 g/dL (12.5-18.0); IMMATURE GRAN # 0.02 x10^3u/L (0.00-0.03); IMMATURE GRAN % 0.3 % (0.00-0.4); Lymphocyte (Absolute #) 1.18 x10^3/uL (1.0-4.6); Lymphocytes % 18.7 % (24.0-44.0); Mean Corpuscular Hemoglobin 31.4 pg (26-32); Mean Corpuscular Hgb Concent. 32.4 g/dL (32-36); Mean Platelet Volume 10.5 fL (7.5-11.0); Monocyte (Absolute #) 0.85 x10^3/uL (0.0-1.3); Monocytes % 13.5 % (0.0-12.0); Platelet Count 150 x10^3/uL (150-450); Red Cell Distribution Width 13.7 % (11.5-14.0); White Blood Count 6.3 x10^3/uL (4.0-10.5)
[2023-04-02 04:58] LABS: ALBUMIN 3.8 g/dL (3.5-5.0); ALKALINE PHOSPHATASE 49 U/L (38-126); ANION GAP 12.2 MEQ/L (5-15); BLOOD UREA NITROGEN 11 mg/dL (9-20); CHLORIDE 105 mmol/L (98-107); Calcium 8.4 mg/dL (8.4-10.2); Carbon Dioxide 24 mmol/L (22-30); Creatinine 1 0.81 mg/dL (0.66-1.25); EST GLOMERULAR FILTRATION RATE > 60.0 ML/MIN; Glucose 91 mg/dL (74-106); Potassium 4.2 mmol/L (3.5-5.1); SGOT/AST 34 U/L (17-59); SGPT/ALT 35 U/L (0-50); SODIUM 137 mmol/L (137-145); Total Protein 6.6 g/dL (6.3-8.2)
[2023-04-02] MEDS: Lopressor 50 MG PO SCH (07:03)
--- NOTE | 2023-04-02 07:58 | CONS ---
CONSULT DATE: 04/01/2023 REASON FOR CONSULT: Possible gallbladder disease. HISTORY: The patient is a 57-year-old male presented yesterday and was admitted with new onset atrial fibrillation and was placed on subcutaneous Lovenox. Cardiology consult obtained. He is going to be placed on p.o. anticoagulation basically as soon as possible. He was admitted to a monitored [facility] ICU bed. He has been subsequently been moved out to the floor to 102. He is alert and oriented. He is 57 and he looks like he is in general excellent health. He said he has been paying a lot of attention to his blood pressure but now he has been paying attention to his pulse rate. He did have a major undertaking three years ago. He knows he was in sinus rhythm at that time. He is not sure when he had some burning here but he thinks he probably had it fairly recently. The patient has some interscapular pain in the mid, lower and upper back. CT scan suggested gallbladder wall thickening. He is not having any discomfort at this time. He has not had any symptoms at this time. Ultrasound revealed gallbladder wall thickening. A HIDA scan has been ordered for tomorrow. If his HIDA scan ejection fraction is in the lower percentile, it would probably make sense to do this prior to him starting p.o. anticoagulation. If his HIDA scan is normal or close to normal, then he probably could be treated initially for his atrial fibrillation and then have an elective surgery later on if it is in like the 25 to 35% range. He is aware of this. We are getting HIDA scan in the morning. They will call the results.
[2023-04-02] MEDS: Lopressor 25MG Tab PO PRN ×2 (09:51→19:28)
--- NOTE | 2023-04-02 13:19 | XRAY ---
Indication: Cholecystitis. Abdomen tenderness. Nausea. Gallbladder wall thickening on recent sonogram. Comparison: None Patient received 5.9 mCi technetium 99 Choletec. Immediate anterior planar imaging was performed for 60 minutes. Normal hepatic activity on the first image. Normal biliary and gallbladder activity within 10 minutes. Normal biliary to bowel activity within 50 minutes. Patient then received 2.3 g of IV CCK slowly. Ejection fraction calculated 41%, normal. Impression: Normal HIDA scan. Normal ejection fraction.
[2023-04-02] MEDS ORDERED: Lopressor 50 MG PO ONE ×2 (13:20→15:33)
--- NOTE | 2023-04-02 15:11 | PCM.NOTE ---
Date and Time: 04/02/23 1506 Subjective Assessment: is a 57 year old male with a pmhx of HTN and HLD presented to the ED on 03/31/23 with complaints of shortness of breath and pain in between his shoulder blades admitted for AFIB RVR, acalculous cholecystitis, initially on cardizem drip/metoprolol as well as Unasyn. Cardizem drip has since been di scontinued. HR still not controlled, increased metoprolol, cards managing. ECHO pending final read. Eliquis on hold pending surgical evaluation for cholecystitis. US abdomen showing GB wall thickening.Normal HIDA scan with normal ejection fraction. Surgery recs pending. Patient states overall he is feeling better, no longer with pain. - Review of Systems Constitutional: No Symptoms Eyes: No Symptoms Ears, Nose, & Throat: No Symptoms, Throat Swelling Respiratory: Cough Cardiac: No Symptoms Abdominal/Gastrointestinal: No Symptoms Genitourinary Symptoms: No Symptoms Musculoskeletal: No Symptoms Skin: No Symptoms Neurological: No Symptoms Psychological: No Symptoms Endocrine: No Symptoms Hematologic/Lymphatic: No Symptoms Objective Exam General Appearance: no apparent distress Neurologic Exam: alert, oriented x 3, cooperative Skin Exam: normal color Eye Exam: PERRL Ears, Nose, Throat Exam: normal ENT inspection Neck Exam: normal inspection Respiratory Exam: normal breath sounds, lungs clear Cardiovascular Exam: tachycardia, other (irregular rhythm) Gastrointestinal/Abdomen Exam: soft, normal bowel sounds Back Exam: normal inspection OBJECTIVE DATA Vital Signs: Vital Signs - 24 hr Temp Pulse Resp BP Pulse Ox 04/02/23 13:00 137 H 04/02/23 10:56 96.2 F 116 H 16 120/79 94 L 04/02/23 06:39 95 H 16 94 L 04/02/23 06:35 97.9 F 78 16 128/83 90 L 04/02/23 04:00 97.7 F 108 H 15 124/68 97 04/02/23 00:00 97.3 F 104 H 24 112/81 97 04/01/23 19:49 104 H 24 96 04/01/23 19:00 100 04/01/23 18:59 97.3 F 100 H 26 H 122/79 94 L 04/01/23 16:00 98.0 F 86 22 112/92 94 L 04/01/23 15:53 83 Pain Assessment - Last Documented Pain Intensity 0 Intake and Output: Intake & Output 03/31/23 04/01/23 04/02/23 04/03/23 11:59 11:59 11:59 11:59 Intake Total 346 560 Output Total 1763 875 Balance -1414 35 Weight 116.12 kg 116.2 kg Lab Results: Lab Results-Last 24 Hours 04/02/23 04/02/23 04/02/23 Range/Units 04:31 04:31 04:31 WBC 6.3 (4.0-10.5) x10^3/uL RBC 5.00 (4.1-5.6) x10^6/uL Hgb 15.7 (12.5-18.0) g/dL Hct 48.5 (42-50) % MCV 97.0 (78-100) fL MCH 31.4 (26-32) pg MCHC 32.4 (32-36) g/dL RDW 13.7 (11.5-14.0) % Plt Count 150 (150-450) x10^3/uL MPV 10.5 (7.5-11.0) fL Gran % 65.0 (36.0-66.0) % Immature Gran % (Auto) 0.3 (0.00-0.4) % Nucleat RBC Rel Count 0.0 (0.00-0.1) % Eos # (Auto) 0.12 (0-0.5) x10^3/uL Immature Gran # (Auto) 0.02 (0.00-0.03) x10^3u/L Absolute Lymphs (auto) 1.18 (1.0-4.6) x10^3/uL Absolute Monos (auto) 0.85 (0.0-1.3) x10^3/uL Absolute Nucleated RBC 0.00 (0.00-0.01) x10^3u/L Lymphocytes % 18.7 L (24.0-44.0) % Monocytes % 13.5 H (0.0-12.0) % Eosinophils % 1.9 (0.00-5.0) % Basophils % 0.6 (0.0-0.4) % Absolute Granulocytes 4.09 (1.4-6.9) x10^3/uL Basophils # 0.04 (0-0.4) x10^3/uL Sodium 137 (137-145) mmol/L Potassium 4.2 (3.5-5.1) mmol/L Chloride 105 (98-107) mmol/L Carbon Dioxide 24 (22-30) mmol/L Anion Gap 12.2 (5-15) MEQ/L BUN 11 (9-20) mg/dL Creatinine 0.81 (0.66-1.25) mg/dL Estimated GFR > 60.0 ML/MIN Glucose 91 (74-106) mg/dL Calcium 8.4 (8.4-10.2) mg/dL Magnesium 2.2 (1.6-2.3) mg/dL Total Bilirubin 1.60 H (0.2-1.3) mg/dL AST 34 (17-59) U/L ALT 35 (0-50) U/L Alkaline Phosphatase 49 (38-126) U/L Serum Total Protein 6.6 (6.3-8.2) g/dL Albumin 3.8 (3.5-5.0) g/dL Radiology Exams: Radiology Procedures Category Date Time Status ABDOMINAL-LIMITED [US] Stat Exams 04/01/23 15:14 Completed ECHO W/2D AND DOPPLER [US] Stat Exams 04/01/23 14:49 Taken HEPATOBILIARY W/CCK [NUCMED] Routine Exams 04/02/23 11:00 Completed Multi-Disciplinary Progress Notes: Multi-Disciplinary Progress Notes 04/02/23 12:52 Case Management Note by Ledy Purvis S/W NASIM CULP SCRIPT $35- S/W SIG OTHER- THIS IS AFFORDABLE FOR PATIENT Initialized on 04/02/23 12:52 - END OF NOTE 04/02/23 09:52 Case Management Note by Linette Farley S/W PATIENT AND SPOUSE. HE CONTINUES TO DENY ANY NEW NEEDS AT TIME OF DC. HE PLANS TO RETURN HOME TO HIS PLOF AT TIME DC Initialized on 04/02/23 09:52 - END OF NOTE Assessment/Plan (1) Atrial fibrillation with RVR Current Visit: Yes Status: Acute Assessment & Plan: Atrial Fibrillation- new onset 03/31: -Monitor on Telemetry -Cardizem drip at 5mg/hr, titrate, consider metoprolol once rate controlled -rate control to target goal HR <85 bpm at rest if symptomatic, goal HR <110 bpm if asymptomatic -[id number]: 1 -Not currently on anticoagulation, lovenox for now -PT/INR supratherapeutic pending -optimize electrolytes for goal of K at 4 and magnesium at 2 -BMP, TSH, MG -ECHO stat 04/01: -ECHO pending -Cards consult pending -continue cardizem drip/ metoprolol increased to 75mg bid with 25mg q6h prn for HR >110 -TSH, MG, K all wnl -Continue anticoagulation with lovenox 04/02: -Cardiology following, metoprolol increased to 150mg BID, HR still not at goal -ECHO pending -Anticoagulation with Eliquis on hold pending surgical evaluation Code(s): I48.91 - UNSPECIFIED ATRIAL FIBRILLATION (2) Hypertension Current Visit: Yes Status: Acute Assessment & Plan: -stable, will continue to monitor Code(s): I10 - ESSENTIAL (PRIMARY) HYPERTENSION (3) HLD (hyperlipidemia) Current Visit: Yes Status: Acute Assessment & Plan: -noted, does not take home meds, will check lipid panel 04/01: -Lipid panel with LDL at 104 and HDL at 39, total cholesterol WNL Code(s): E78.5 - HYPERLIPIDEMIA, UNSPECIFIED (4) Abnormal CT of the chest Current Visit: Yes Status: Acute Assessment & Plan: -CTA showing Partially visualized pericholecystic stranding with recommendations to rule out acalculous cholecystitis. Will order abdominal US. 04/01: -abdominal US showing GB wall thickening, gen surg consulted, may need cardiac clearance if surgical intervention needed -Unasyn added -HiDA ordered 04/02: -HIDA normal with normal EF, surg recs pending, continue unasyn for now Code(s): R93.89 - ABNORMAL FINDINGS ON DX IMAGING OF OTH BODY STRUCTURES
[2023-04-02] MEDS ORDERED: Lopressor 25MG Tab PO SCH (22:00)
[2023-04-02] MEDS ORDERED: Lopressor 50 MG PO SCH ×3 (22:00)
[2023-04-03 04:58] LABS: Absolute Neutrophil Ct (ANC) 3.89 x10^3/uL (1.4-6.9); BASOPHIL % 0.5 % (0.0-0.4); Basophil (Absolute #) 0.03 x10^3/uL (0-0.4); Eosinophil % 1.9 % (0.00-5.0); Eosinophil (Absolute #) 0.12 x10^3/uL (0-0.5); Hematocrit 48.8 % (42-50); Hemoglobin 16.2 g/dL (12.5-18.0); IMMATURE GRAN # 0.02 x10^3u/L (0.00-0.03); IMMATURE GRAN % 0.3 % (0.00-0.4); Lymphocyte (Absolute #) 1.43 x10^3/uL (1.0-4.6); Lymphocytes % 22.2 % (24.0-44.0); Mean Cell Volume 95.9 fL (78-100); Mean Corpuscular Hemoglobin 31.8 pg (26-32); Mean Corpuscular Hgb Concent. 33.2 g/dL (32-36); Monocyte (Absolute #) 0.95 x10^3/uL (0.0-1.3); Monocytes % 14.8 % (0.0-12.0); Neutrophil % 60.3 % (36.0-66.0); Platelet Count 167 x10^3/uL (150-450); Red Blood Count 5.09 x10^6/uL (4.1-5.6); Red Cell Distribution Width 13.6 % (11.5-14.0); White Blood Count 6.4 x10^3/uL (4.0-10.5)
[2023-04-03 05:07] LABS: ALBUMIN 3.6 g/dL (3.5-5.0); ALKALINE PHOSPHATASE 55 U/L (38-126); ANION GAP 11.5 MEQ/L (5-15); BLOOD UREA NITROGEN 12 mg/dL (9-20); CHLORIDE 105 mmol/L (98-107); Calcium 8.3 mg/dL (8.4-10.2); Carbon Dioxide 23 mmol/L (22-30); Creatinine 1 0.92 mg/dL (0.66-1.25); EST GLOMERULAR FILTRATION RATE > 60.0 ML/MIN; Glucose 82 mg/dL (74-106); MAGNESIUM 2.2 mg/dL (1.6-2.3); SGOT/AST 37 U/L (17-59); SGPT/ALT 36 U/L (0-50); SODIUM 136 mmol/L (137-145); Total Protein 6.2 g/dL (6.3-8.2)
[2023-04-03] MEDS: Unasyn 3 GM Vial*** 3 G in Sodium Chloride 100ML MINI-BAG PLUS 100 ML IV SCH (05:35)
--- NOTE | 2023-04-03 07:45 | ECHO ---
DATE OF PROCEDURE: 04/01/2023 CLINICAL INFORMATION: Atrial fibrillation with elevated BNP. The M-mode 2D, and Doppler echocardiogram including color flow Doppler shows the left ventricle is normal in size. The heart rate varies from 80 to 107 beats/minute. There is no thrombus noted. The wall thickness is normal. There is severe left ventricular systolic dysfunction. The ejection fraction is estimated to be 15 to 20%. The right ventricle is dilated. The left atrium is mildly dilated. The interatrial septum is intact. The right atrium is dilated. The aortic valve opens well. It is trileaflet. There is no aortic regurgitation. There is mitral valve leaflet thickening. There is mild tricuspid regurgitation. The right ventricular systolic pressure is calculated to be 30 mm of Mercury. The pulmonic valve is not well visualized. The aortic root is normal. There is no pericardial effusion present. IMPRESSION: 1) SEVERE LEFT VENTRICULAR SYSTOLIC DYSFUNCTION. 2) MILD LEFT ATRIAL DILATATION. 3) RIGHT VENTRICULAR DILATATION. 4) RIGHT ATRIAL DILATATION. 5) MILD TRICUSPID REGURGITATION. 6) BORDERLINE MILD PULMONARY HYPERTENSION.
[2023-04-03] MEDS ORDERED: Miscellaneous Medication Order MC ONE (08:16)
[2023-04-03] MEDS: ENTRESTO 49 MG-51 MG TABLET PO SCH ×2 (09:24→21:02)
[2023-04-03] MEDS ORDERED: Toprol-Xl 25MG Tablets PO SCH (10:00)
--- NOTE | 2023-04-03 10:59 | PCM.NOTE ---
Date and Time: 04/03/23 1054 Subjective Assessment: is a 57 year old male with a pmhx of HTN and HLD presented to the ED on 03/31/23 with complaints of shortness of breath and pain in between his shoulder blades admitted for AFIB RVR, acalculous cholecystitis, initially on cardizem drip/metoprolol as well as Unasyn. Cardizem drip has since been dis continued. HR still not controlled reaching into the 170's cards managing, patient currently being treated with metoprolol and entresto, no eliquis needed per cards. ECHO showing EF of 15-20%. US abdomen showing GB wall thickening. Normal HIDA scan with normal ejection fraction, no need for surgical intervention. Patient states overall he is feeling better, no longer with pain, asymptomatic in regards to AFIB. - Review of Systems Constitutional: No Symptoms Eyes: No Symptoms Ears, Nose, & Throat: No Symptoms Respiratory: No Symptoms Cardiac: No Symptoms Abdominal/Gastrointestinal: No Symptoms Genitourinary Symptoms: No Symptoms Musculoskeletal: No Symptoms Skin: No Symptoms Neurological: No Symptoms Psychological: No Symptoms Endocrine: No Symptoms Objective Exam General Appearance: no apparent distress Neurologic Exam: alert, oriented x 3, cooperative Skin Exam: normal color Eye Exam: PERRL Neck Exam: normal inspection Respiratory Exam: normal breath sounds, lungs clear Cardiovascular Exam: tachycardia, other (irregular rhythm) Extremity Exam: normal inspection Back Exam: normal inspection Male Genitalia Exam: deferred Rectal Exam: deferred OBJECTIVE DATA Vital Signs: Vital Signs - 24 hr Temp Pulse Resp BP Pulse Ox 04/03/23 07:16 97.7 F 137 H 17 132/83 96 04/03/23 03:47 97.3 F 127 H 14 105/59 96 04/02/23 23:50 97.1 F 143 H 14 110/67 96 04/02/23 19:15 97.3 F 136 H 21 107/54 94 L 04/02/23 18:55 94 L 04/02/23 16:00 97.1 F 121 H 18 133/70 94 L 04/02/23 13:00 137 H 04/02/23 10:56 96.2 F 116 H 16 120/79 94 L Pain Assessment - Last Documented Pain Intensity 0 Intake and Output: Intake & Output 03/31/23 04/01/23 04/02/23 09/08/23 11:59 11:59 11:59 11:59 Intake Total 950 263 4427 Output Total 1760 525 Balance -1414 35 1520 Weight 116.12 kg 116.2 kg Lab Results: Lab Results-Last 24 Hours 04/03/23 04/03/23 Range/Units 04:44 04:44 WBC 6.4 (4.0-10.5) x10^3/uL RBC 5.09 (4.1-5.6) x10^6/uL Hgb 16.2 (12.5-18.0) g/dL Hct 48.8 (42-50) % MCV 95.9 (78-100) fL MCH 31.8 (26-32) pg MCHC 33.2 (32-36) g/dL RDW 13.6 (11.5-14.0) % Plt Count 167 (150-450) x10^3/uL MPV 11.0 (7.5-11.0) fL Gran % 60.3 (36.0-66.0) % Immature Gran % (Auto) 0.3 (0.00-0.4) % Nucleat RBC Rel Count 0.0 (0.00-0.1) % Eos # (Auto) 0.12 (0-0.5) x10^3/uL Immature Gran # (Auto) 0.02 (0.00-0.03) x10^3u/L Absolute Lymphs (auto) 1.43 (1.0-4.6) x10^3/uL Absolute Monos (auto) 0.95 (0.0-1.3) x10^3/uL Absolute Nucleated RBC 0.00 (0.00-0.01) x10^3u/L Lymphocytes % 22.2 L (24.0-44.0) % Monocytes % 14.8 H (0.0-12.0) % Eosinophils % 1.9 (0.00-5.0) % Basophils % 0.5 (0.0-0.4) % Absolute Granulocytes 3.89 (1.4-6.9) x10^3/uL Basophils # 0.03 (0-0.4) x10^3/uL Sodium 136 L (137-145) mmol/L Potassium 4.0 (3.5-5.1) mmol/L Chloride 105 (98-107) mmol/L Carbon Dioxide 23 (22-30) mmol/L Anion Gap 11.5 (5-15) MEQ/L BUN 12 (9-20) mg/dL Creatinine 0.92 (0.66-1.25) mg/dL Estimated GFR > 60.0 ML/MIN Glucose 82 (74-106) mg/dL Calcium 8.3 L (8.4-10.2) mg/dL Magnesium 2.2 (1.6-2.3) mg/dL Total Bilirubin 0.90 (0.2-1.3) mg/dL AST 37 (17-59) U/L ALT 36 (0-50) U/L Alkaline Phosphatase 55 (38-126) U/L Serum Total Protein 6.2 L (6.3-8.2) g/dL Albumin 3.6 (3.5-5.0) g/dL Radiology Exams: Radiology Procedures Category Date Time Status ABDOMINAL-LIMITED [US] Stat Exams 04/01/23 15:14 Completed ECHO W/2D AND DOPPLER [US] Stat Exams 04/01/23 14:49 Draft HEPATOBILIARY W/CCK [NUCMED] Routine Exams 04/02/23 11:00 Completed Multi-Disciplinary Progress Notes: Multi-Disciplinary Progress Notes 04/03/23 10:30 Case Management Note by Ledy Purvis Addendum entered by Ledy Purvis 04/03/23 10:31: *[facility]IS PL[facility] Original Note: PATIENT CONTINUES TO DENY ANY NEW NEEDS AT TIME OF DC. HE PLANS TO DC HOME TO HER PLF AT TIME OF DC. Initialized on 04/03/23 10:30 - END OF NOTE 04/02/23 12:52 Case Management Note by Ledy Purvis S/W NASIM CULP SCRIPT $35- S/W SIG OTHER- THIS IS AFFORDABLE FOR PATIENT Initialized on 04/02/23 12:52 - END OF NOTE Assessment/Plan (1) Atrial fibrillation with RVR Current Visit: Yes Status: Acute Assessment & Plan: Atrial Fibrillation- new onset 03/31: -Monitor on Telemetry -Cardizem drip at 5mg/hr, titrate, consider metoprolol once rate controlled -rate control to target goal HR <85 bpm at rest if symptomatic, goal HR <110 bpm if asymptomatic -[id number]: 1 -Not currently on anticoagulation, lovenox for now -PT/INR supratherapeutic pending -optimize electrolytes for goal of K at 4 and magnesium at 2 -BMP, TSH, MG -ECHO stat 04/01: -ECHO pending -Cards consult pending -continue cardizem drip/ metoprolol increased to 75mg bid with 25mg q6h prn for HR >110 -TSH, MG, K all wnl -Continue anticoagulation with lovenox 04/02: -Cardiology following, metoprolol increased to 150mg BID, HR still not at goal -ECHO pending -Anticoagulation with Eliquis on hold pending surgical evaluation 04/03: -Spoke with Dr. Biswas personally this morning due to concern of persistent AFIB with HR in the 170's at rest. Current treatment with Toprol xl 25mg. Echo showing EF of 15-20%, Entresto added. Due to [id number]: 1, no need for anticoagulation. Code(s): I48.91 - UNSPECIFIED ATRIAL FIBRILLATION (2) Hypertension Current Visit: Yes Status: Acute Assessment & Plan: -stable, will continue to monitor Code(s): I10 - ESSENTIAL (PRIMARY) HYPERTENSION (3) HLD (hyperlipidemia) Current Visit: Yes Status: Acute Assessment & Plan: -noted, does not take home meds, will check lipid panel 04/01: -Lipid panel with LDL at 104 and HDL at 39, total cholesterol WNL Code(s): E78.5 - HYPERLIPIDEMIA, UNSPECIFIED (4) Abnormal CT of the chest Current Visit: Yes Status: Acute Assessment & Plan: -CTA showing Partially visualized pericholecystic stranding with recommendations to rule out acalculous cholecystitis. Will order abdominal US. 04/01: -abdominal US showing GB wall thickening, gen surg consulted, may need cardiac clearance if surgical intervention needed -Unasyn added -HiDA ordered 04/02: -HIDA normal with normal EF, surg recs pending, continue unasyn for now 04/03: -No plans for surgical intervention, d/c unasyn Code(s): R93.89 - ABNORMAL FINDINGS ON DX IMAGING OF OTH BODY STRUCTURES
[2023-04-03] MEDS ORDERED: Toprol Xl 100 MG PO SCH (11:20)
[2023-04-03] MEDS ORDERED: Lanoxin 0.5 MG/2 ML INJECTION IV ONE (17:50)
[2023-04-03] MEDS: Toprol Xl 100 MG PO SCH (21:02)
[2023-04-03] MEDS: ELIQUIS 2.5 MG TABLET PO SCH (21:04)
[2023-04-04 05:36] LABS: Absolute Neutrophil Ct (ANC) 6.03 x10^3/uL (1.4-6.9); BASOPHIL % 0.4 % (0.0-0.4); Basophil (Absolute #) 0.03 x10^3/uL (0-0.4); Eosinophil % 1.4 % (0.00-5.0); Eosinophil (Absolute #) 0.12 x10^3/uL (0-0.5); Hematocrit 51.6 % (42-50); Hemoglobin 17.3 g/dL (12.5-18.0); IMMATURE GRAN # 0.03 x10^3u/L (0.00-0.03); IMMATURE GRAN % 0.4 % (0.00-0.4); Lymphocyte (Absolute #) 1.17 x10^3/uL (1.0-4.6); Mean Corpuscular Hemoglobin 31.9 pg (26-32); Mean Corpuscular Hgb Concent. 33.5 g/dL (32-36); Mean Platelet Volume 10.8 fL (7.5-11.0); Monocyte (Absolute #) 0.99 x10^3/uL (0.0-1.3); Monocytes % 11.8 % (0.0-12.0); Platelet Count 165 x10^3/uL (150-450); Red Blood Count 5.43 x10^6/uL (4.1-5.6); Red Cell Distribution Width 13.5 % (11.5-14.0); White Blood Count 8.4 x10^3/uL (4.0-10.5)
[2023-04-04 05:55] LABS: ALBUMIN 3.6 g/dL (3.5-5.0); ALKALINE PHOSPHATASE 55 U/L (38-126); BLOOD UREA NITROGEN 12 mg/dL (9-20); CHLORIDE 106 mmol/L (98-107); Calcium 8.2 mg/dL (8.4-10.2); Carbon Dioxide 26 mmol/L (22-30); Creatinine 1 0.95 mg/dL (0.66-1.25); EST GLOMERULAR FILTRATION RATE > 60.0 ML/MIN; Glucose 86 mg/dL (74-106); MAGNESIUM 2.1 mg/dL (1.6-2.3); SGOT/AST 52 U/L (17-59); SGPT/ALT 50 U/L (0-50); SODIUM 138 mmol/L (137-145); Total Protein 6.2 g/dL (6.3-8.2)
[2023-04-04 08:11] VITALS: BP 102/65; PULSE 92; RESP 15; TEMP 98.2; O2SAT 93
--- NOTE | 2023-04-04 08:56 | PCM.DS ---
Discharge Summary Date of Admission: 03/31/23 13:45 Date of Discharge: 04/04/23 Admitting Physician: CARLEY HAY MD Consults: Consults on Case 04/01/23 08:00 Consult Cardiology ROUTINE 04/01/23 10:57 Consult Surgery ROUTINE Primary Care Provider: CHRISTOPHER GOLDSTEIN <JOVAN TAO - Last Filed: 04/04/23 09:27> Date of Admission: 03/31/23 13:45 Admitting Physician: CARLEY HAY MD Consults: Consults on Case 04/01/23 08:00 Consult Cardiology ROUTINE 04/01/23 10:57 Consult Surgery ROUTINE Primary Care Provider: CHRISTOPHER GOLDSTEIN <SAM STATON - Last Filed: 04/04/23 09:54> Allergies <JOVAN TAO - Last Filed: 04/04/23 09:27> <SAM STATON - Last Filed: 04/04/23 09:54> Allergies No Known Drug Allergies Allergy (Verified 03/31/23 11:45) Hospital Summary - Hospital Course Hospital Course: is a 57 year old male with a pmhx of HTN and HLD presented to the ED on 03/31/23 with complaints of shortness of breath and pain in between his shoulder blades admitted for AFIB RVR, acalculous cholecystitis, initially on cardizem drip/metoprolol as well as Unasyn. HR now controlled. Cardiology consulted, patient currently being treated with metoprolol, digoxin, entresto, and eliquis. ECHO showing EF of 15-20%. US abdomen showing GB wall thickening. Normal HIDA scan with normal ejection fraction, no need for surgical intervention. Patient states overall he is feeling better, no longer with pain, asymptomatic in regards to AFIB. - Vitals & Intake/Output Vital Signs: Vital Signs Temperature 98.2 F 04/04/23 08:00 Pulse Rate 92 H 04/04/23 08:00 Respiratory Rate 15 04/04/23 08:00 Blood Pressure 102/65 04/04/23 08:00 O2 Sat by Pulse Oximetry 93 L 04/04/23 08:00 Intake & Output: Intake & Output 04/01/23 04/02/23 04/03/23 04/04/23 11:59 11:59 11:59 11:59 Intake Total 731 079 5980 1080 Output Total 1760 525 Balance -1414 35 1520 1080 Weight 116.2 kg - Lab Result Diagrams: 04/04/23 05:14 04/04/23 05:14 Lab Results-Last 24 Hrs: Lab Results-Last 24 Hours 04/04/23 04/04/23 Range/Units 05:14 05:14 WBC 8.4 (4.0-10.5) x10^3/uL RBC 5.43 (4.1-5.6) x10^6/uL Hgb 17.3 (12.5-18.0) g/dL Hct 51.6 H (42-50) % MCV 95.0 (78-100) fL MCH 31.9 (26-32) pg MCHC 33.5 (32-36) g/dL RDW 13.5 (11.5-14.0) % Plt Count 165 (150-450) x10^3/uL MPV 10.8 (7.5-11.0) fL Gran % 72.0 H (36.0-66.0) % Immature Gran % (Auto) 0.4 (0.00-0.4) % Nucleat RBC Rel Count 0.0 (0.00-0.1) % Eos # (Auto) 0.12 (0-0.5) x10^3/uL Immature Gran # (Auto) 0.03 (0.00-0.03) x10^3u/L Absolute Lymphs (auto) 1.17 (1.0-4.6) x10^3/uL Absolute Monos (auto) 0.99 (0.0-1.3) x10^3/uL Absolute Nucleated RBC 0.00 (0.00-0.01) x10^3u/L Lymphocytes % 14.0 L (24.0-44.0) % Monocytes % 11.8 (0.0-12.0) % Eosinophils % 1.4 (0.00-5.0) % Basophils % 0.4 (0.0-0.4) % Absolute Granulocytes 6.03 (1.4-6.9) x10^3/uL Basophils # 0.03 (0-0.4) x10^3/uL Sodium 138 (137-145) mmol/L Potassium 4.0 (3.5-5.1) mmol/L Chloride 106 (98-107) mmol/L Carbon Dioxide 26 (22-30) mmol/L Anion Gap 10.0 (5-15) MEQ/L BUN 12 (9-20) mg/dL Creatinine 0.95 (0.66-1.25) mg/dL Estimated GFR > 60.0 ML/MIN Glucose 86 (74-106) mg/dL Calcium 8.2 L (8.4-10.2) mg/dL Magnesium 2.1 (1.6-2.3) mg/dL Total Bilirubin 0.80 (0.2-1.3) mg/dL AST 52 (17-59) U/L ALT 50 (0-50) U/L Alkaline Phosphatase 55 (38-126) U/L Serum Total Protein 6.2 L (6.3-8.2) g/dL Albumin 3.6 (3.5-5.0) g/dL - Radiology Exams Ordered Rad Exams-Entire Visit: Radiology Procedures Category Date Time Status HEPATOBILIARY W/CCK [NUCMED] Routine Exams 04/02/23 11:00 Completed - Procedures and Test Procedures and Tests throughout Hospitalization: Therapy Orders & Screens 04/01/23 07:00 Respiratory Therapy Assessment DAILY Comment: Diagnosis: A-fib with RVR <JOVAN TAO - Last Filed: 04/04/23 09:27> - Vitals & Intake/Output Vital Signs: Vital Signs Temperature 98.2 F 04/04/23 08:00 Pulse Rate 92 H 04/04/23 08:00 Respiratory Rate 15 04/04/23 08:00 Blood Pressure 102/65 04/04/23 08:00 O2 Sat by Pulse Oximetry 93 L 04/04/23 08:00 Intake & Output: Intake & Output 04/01/23 04/02/23 04/03/23 04/04/23 11:59 11:59 11:59 11:59 Intake Total 993 336 8552 1080 Output Total 1760 525 Balance -1414 35 1520 1080 Weight 116.2 kg - Lab Result Diagrams: 04/04/23 05:14 04/04/23 05:14 Lab Results-Last 24 Hrs: Lab Results-Last 24 Hours 04/04/23 04/04/23 Range/Units 05:14 05:14 WBC 8.4 (4.0-10.5) x10^3/uL RBC 5.43 (4.1-5.6) x10^6/uL Hgb 17.3 (12.5-18.0) g/dL Hct 51.6 H (42-50) % MCV 95.0 (78-100) fL MCH 31.9 (26-32) pg MCHC 33.5 (32-36) g/dL RDW 13.5 (11.5-14.0) % Plt Count 165 (150-450) x10^3/uL MPV 10.8 (7.5-11.0) fL Gran % 72.0 H (36.0-66.0) % Immature Gran % (Auto) 0.4 (0.00-0.4) % Nucleat RBC Rel Count 0.0 (0.00-0.1) % Eos # (Auto) 0.12 (0-0.5) x10^3/uL Immature Gran # (Auto) 0.03 (0.00-0.03) x10^3u/L Absolute Lymphs (auto) 1.17 (1.0-4.6) x10^3/uL Absolute Monos (auto) 0.99 (0.0-1.3) x10^3/uL Absolute Nucleated RBC 0.00 (0.00-0.01) x10^3u/L Lymphocytes % 14.0 L (24.0-44.0) % Monocytes % 11.8 (0.0-12.0) % Eosinophils % 1.4 (0.00-5.0) % Basophils % 0.4 (0.0-0.4) % Absolute Granulocytes 6.03 (1.4-6.9) x10^3/uL Basophils # 0.03 (0-0.4) x10^3/uL Sodium 138 (137-145) mmol/L Potassium 4.0 (3.5-5.1) mmol/L Chloride 106 (98-107) mmol/L Carbon Dioxide 26 (22-30) mmol/L Anion Gap 10.0 (5-15) MEQ/L BUN 12 (9-20) mg/dL Creatinine 0.95 (0.66-1.25) mg/dL Estimated GFR > 60.0 ML/MIN Glucose 86 (74-106) mg/dL Calcium 8.2 L (8.4-10.2) mg/dL Magnesium 2.1 (1.6-2.3) mg/dL Total Bilirubin 0.80 (0.2-1.3) mg/dL AST 52 (17-59) U/L ALT 50 (0-50) U/L Alkaline Phosphatase 55 (38-126) U/L Serum Total Protein 6.2 L (6.3-8.2) g/dL Albumin 3.6 (3.5-5.0) g/dL - Radiology Exams Ordered Rad Exams-Entire Visit: Radiology Procedures Category Date Time Status HEPATOBILIARY W/CCK [NUCMED] Routine Exams 04/02/23 11:00 Completed - Procedures and Test Procedures and Tests throughout Hospitalization: Therapy Orders & Screens 04/01/23 07:00 Respiratory Therapy Assessment DAILY Comment: Diagnosis: A-fib with RVR <SAM STATON - Last Filed: 04/04/23 09:54> Discharge Exam General Appearance: no apparent distress Neurologic Exam: alert, oriented x 3, cooperative Eye Exam: PERRL Ears, Nose, Throat Exam: normal ENT inspection Neck Exam: normal inspection Respiratory Exam: crackles/rales (BL bases fine crackles) Cardiovascular Exam: regular rate/rhythm, normal heart sounds Gastrointestinal/Abdomen Exam: soft, normal bowel sounds Male Genitalia Exam: deferred Rectal Exam: deferred Back Exam: normal inspection Extremity Exam: normal inspection Skin Exam: normal color <JOVAN TAO - Last Filed: 04/04/23 09:27> Final Diagnosis/Problem List - Final Discharge Diagnosis/Problem (1) Atrial fibrillation with RVR Current Visit: Yes Status: Acute Code(s): I48.91 - UNSPECIFIED ATRIAL FIBRILLATION (2) Hypertension Current Visit: Yes Status: Chronic Code(s): I10 - ESSENTIAL (PRIMARY) HYPERTENSION (3) HLD (hyperlipidemia) Current Visit: Yes Status: Chronic Code(s): E78.5 - HYPERLIPIDEMIA, UNSPECIFIED (4) Abnormal CT of the chest Current Visit: Yes Status: Acute Code(s): R93.89 - ABNORMAL FINDINGS ON DX IMAGING OF OTH BODY STRUCTURES <JOVAN TAO - Last Filed: 04/04/23 09:27> <JOVAN TAO - Last Filed: 04/04/23 09:27> <SAM STATON - Last Filed: 04/04/23 09:54> - Discharge Disposition: Home, Self-Care Condition: Stable Prescriptions: New Apixaban [Eliquis 2.5 mg Tablet] 5 mg PO BID 30 Days #60 tablet Sacubitril/Valsartan [Entresto 24 mg-26 mg Tablet] 1 each PO BID 30 Days #60 tablet Digoxin [Lanoxin] 250 mcg PO DAILY 30 Days #30 tablet Metoprolol Succinate 100 mg [Toprol Xl 100 MG] 100 mg PO BID 30 Days #60 tablet Discontinued Tadalafil [Cialis] 20 mg PO UD EPINEPHrine [Primatene Mist] 2 puffs IH UD PRN PRN Reason: wheeze Instructions: Atrial Fibrillation (DC), Apixaban, Metoprolol, Gallbladder Diet Follow up with: PENELOPE MARIN MD [CONSULTING PHYSICIAN] - Call for Appointment (Call for appt Thursday) CHRISTOPHER GOLDSTEIN MD [Primary Care Provider] - Call for Appointment (Call for appt Thursday) ENEIDA GARZON [COURTESY STAFF] - 1 Week (Follow up in one week)
[2023-04-04] MEDS: Toprol Xl 100 MG PO SCH (09:50)
[2023-04-04] MEDS: ELIQUIS 2.5 MG TABLET PO SCH (09:50)
[2023-04-04] MEDS: ENTRESTO 49 MG-51 MG TABLET PO SCH (09:51)
[2023-04-04] MEDS ORDERED: Lanoxin 0.125MG TABLET PO SCH (10:00)
== END 2023-04-04 10:23 | disposition home or self-care (01) ==
LOC: ED 11:22 → ICU 13:45 → MED SURG 04-01 17:25
PROVIDERS: ADMIT Internal Medicine; ATTEND Internal Medicine
DX: I48.20 Chronic atrial fibrillation, unspecified (principal); I10 Essential (primary) hypertension; E78.5 Hyperlipidemia, unspecified; K81.9 Cholecystitis, unspecified; R93.89 Abnormal findings on diagnostic imaging of other specified body structures; R79.89 Other specified abnormal findings of blood chemistry; R06.03 Acute respiratory distress; Z79.899 Other long term (current) drug therapy; Z20.828 Contact with and (suspected) exposure to other viral communicable diseases
CPT/HCPCS: 36415; 71260; 76705; 78227; 80053; 80061; 80307; 81001; 83721; 83735; 83880; 84443; 84484; 85025; 85610; 93268; 93306; 94760; 94762; 96365; 96372; 96374; 99284; 99291; A9537; G0378; Q3014; J0295; J1160; J1650; J2805; A9270-GY